=== PATIENT | male | born 1985 | race Caucasian/White ===

== ENCOUNTER 2020-08-18 07:58 | Emergency (ER) | payer MEDICAID ==
[~2020-08-18] VITALS: Ht 175.3 cm; Wt 140.6 kg
[2020-08-18 08:00] VITALS: BP_SYST 149
[2020-08-18 09:30] VITALS: BP_SYST 148
[2020-08-19] MEDS ORDERED: IBUP-1971 PO (19:05)
[2020-08-19] MEDS ORDERED: HYDR-3919 PO (19:05)
== END 2020-08-18 18:55 | disposition home or self-care (01) ==
LOC: SED 07:58
DX: K40.90 Unilateral inguinal hernia, without obstruction or gangrene, not specified as recurrent (principal)
CPT/HCPCS: 99281

== ENCOUNTER 2020-08-19 17:30 | Emergency (ER) | payer MEDICAID ==
[~2020-08-19] VITALS: Ht 175.3 cm; Wt 140.6 kg
[2020-08-19 17:36] VITALS: BP_SYST 156
--- NOTE | 2020-08-19 17:40 | NUR ---
Patient triaged and placed in waiting room. VSS and patient appears in no acute distress at this time. Awaiting available bed, and MD notified of need for MSE.
--- NOTE | 2020-08-19 17:46 | NUR ---
Patient to ER bed 1 to gown for evaluation. Side rails up. Report given to DONALD Juarez.
--- NOTE | 2020-08-19 17:50 | NUR ---
Pt came to ER fofr inguinal hernia, states he was seen yesterday where MD was able to push it back up. Pt able to ambulate to bed, resting in gurney comfortably, on monitor, VSS, awaiting MD.
[2020-08-19 18:33] LABS: BASOPHILS # (AUTO) 0.1 K/uL (0.0-0.2); BASOPHILS % (AUTO) 0.7 % (0.0-2.0); EOSINOPHILS % (AUTO) 0.1 % (0.0-4.0); HEMATOCRIT 42.6 % (36-54); HEMOGLOBIN 14.4 g/dL (14.0-18.0); LYMPHOCYTES # (AUTO) 2.6 K/uL (1.0-5.5); LYMPHOCYTES % (AUTO) 16.6 % (20.5-51.5); MEAN CORPUSCULAR HEMOGLOBIN 29 pg (27-31); MEAN CORPUSCULAR HGB CONC 34 % (32-36); MEAN CORPUSCULAR VOLUME 86 fL (79.0-98.0); MONOCYTES # (AUTO) 0.9 K/uL (0.0-1.0); MONOCYTES % (AUTO) 5.5 % (1.7-9.3); NEUTROPHILS # (AUTO) 12.3 K/uL (1.8-7.7); NEUTROPHILS % (AUTO) 77.1 % (40.0-70.0); PLATELET COUNT (AUTO) 307 K/uL (130-430); RED BLOOD CELL COUNT(AUTO) 4.93 MIL/uL (4.2-6.2); RED CELL DISTRIBUTION WIDTH 13.4 % (9.0-15.0); WHITE BLOOD COUNT (AUTO) 15.9 K/uL (4.8-10.8)
--- NOTE | 2020-08-19 18:43 | NUR ---
Pt returned from CT, states no pain at this time, attempting to urinate.
[2020-08-19 18:47] LABS: CALCIUM 9.1 mg/dL (8.4-11.0); CREATININE 0.85 mg/dL (0.55-1.30); POTASSIUM 3.3 mmol/L (3.5-5.1)
[2020-08-19 18:48] LABS: C-REACTIVE PROTEIN QUANT 1.7 mg/dL (0-0.5)
[2020-08-19 18:53] LABS: TOTAL BILIRUBIN 0.5 mg/dL (0.0-1.0)
[2020-08-19] MEDS ORDERED: HYDR-3919 PO (19:05)
[2020-08-19] MEDS ORDERED: IBUP-1971 PO (19:05)
[2020-08-19 19:07] LABS: PROTHROMBIN TIME 10.7 SECS (9.5-12.5)
[2020-08-19 19:21] LABS: BILIRUBIN,URINE NEGATIVE (NEGATIVE); BLOOD, URINE 1+ (NEGATIVE); COLOR,URINE YELLOW (YELLOW); GLUCOSE,URINE NEGATIVE (NEGATIVE); KETONES,URINE 1+ (NEGATIVE); LEUKOCYTE ESTERASE ,URINE NEGATIVE (NEGATIVE); NITRITE, URINE NEGATIVE (NEGATIVE); PH,URINE 6.5 (5.0-8.0); PROTEIN URINE NEGATIVE (NEGATIVE); UROBILINOGEN,URINE 0.2 (0.2-1.0)
[2020-08-19 19:30] VITALS: BP_SYST 148
--- NOTE | 2020-08-19 19:30 | NUR ---
Patient given written and verbal discharge instructions and verbalizes understanding. ER MD discussed with patient the results and treatment provided. Patient in stable condition. ID arm band removed. Patient educated on pain management and to follow up with PMD. Pain Scale 0/10 Opportunity for questions provided and answered.
[2020-08-19 19:33] LABS: CLARITY/URINE SLIGHTLY HAZY (CLEAR)
[2020-08-19 19:39] LABS: BACTERIA,URINE FEW /HPF (None Seen); MUCUS,URINE 1+ /LPF (None Seen); RBC,URINE 0-3 /HPF (0-3); WBC,URINE NONE SEEN /HPF (0-3)
== END 2020-08-19 19:30 | disposition home or self-care (01) ==
LOC: SED 17:30
DX: K40.90 Unilateral inguinal hernia, without obstruction or gangrene, not specified as recurrent (principal)
CPT/HCPCS: 36415; 76376; 80053; 81000-TC; 82150-TC; 83605; 83690-TC; 85025; 85610-TC; 85730-TC; 86140; 99284